=== PATIENT | male | born 1955 | race Caucasian/White ===

== ENCOUNTER → 2025-05-16 07:57 | Outpatient (CLI) | payer MEDICARE, OTHER, SELFPAY ==
--- NOTE | 2025-05-16 08:03 | DI.ECHO.S_ITS ---
[facility] : : [address] : : [place] : : [id number] : : Phone: [phone] Echocardiogram Report + + :Name: BREN CHAVEZ Study Date: 05/16/2025 Height: 74 in : :[facility] ReadingLocation: Weight: 184 lb : : Gender: Male BSA: 2.1 m2 : :: 1955 Age: 69 yrs BP: 153/85 mmHg: :Reason For Study: PAROXYSMAL ATRIAL FIBRILLATION : :Ordering Physician: SARITHA, : :JOSE Brown Performed By: Bal Witt : :Referring: JOSE MELARA : + + Interpretation Summary 1) Normal left ventricular size with low normal systolic function (EF 50-55%). 2) Normal right ventricular size and function. 3) There is mild aortic regurgitation. 4) There is mild mitral regurgitation. 5) Compared to the Echo done 07/26/2010, LVEF has decreased slightly based on visual assesment and mild valvular regurgitations are noted as above on this study. Procedure: A two-dimensional transthoracic echocardiogram with color flow and Doppler was performed. The study quality was technically good. Comparison is made with the echocardiogram of 07/26/2010. The patient was in normal sinus rhythm during the exam. Left Ventricle: The left ventricle is normal in size. Left ventricular wall thickness is at the upper limits of normal. A false chord is noted (normal variant). There is no ventricular septal defect visualized. The ejection fraction is estimated to be 50-55%. There are no focal wall motion abnormalities. Diastolic parameters suggest probable normal left ventricular diastolic function and normal filling pressures. Right Ventricle: The right ventricle is normal in size and function. Atria: The left atrial size is normal. Right atrial size is normal. There is no Doppler evidence for an interatrial shunt. Mitral Valve: The mitral valve leaflets appear mildly thickened. There is mild mitral regurgitation. Aortic Valve: The aortic valve is trileaflet. The aortic valve opens well. There is no aortic valve stenosis. There is mild aortic regurgitation. There is an eccentric jet of aortic insufficiency directed against the septum. Tricuspid Valve: The tricuspid valve leaflets are thin and pliable. No tricuspid regurgitation. Pulmonic Valve: The pulmonic valve is not well seen, but is grossly normal. There is trace pulmonic regurgitation. Great Vessels: The aortic root is moderately dilated. The dimensions of the ascending aorta are normal. The pulmonary is not well visualized. The inferior vena cava was not visualized. Pericardium/ Pleura There is no pericardial effusion. There is no pleural effusion. MMode/2D Measurements & Calculations LVIDd: 5.1 cm LVOT diam: 2.3 cm LVIDs: 3.7 cm Ao root diam: 4.6 cm FS: 28.2 % asc Aorta Diam: 3.5 cm EPSS: 1.0 cm IVSd: 1.2 cm LVPWd: 0.97 cm LV evans. diameter/BSA (cm/m^2): 2.4 LV sys. diameter/BSA (cm/m^2): 1.8 LA A2 area: 19.9 cm2 RA long axis: 4.8 cm LA A4 area: 20.4 cm2 RA area: 15.7 cm2 LA length (vol): 5.1 cm RA vol: 43.3 ml LA vol: 67.5 ml RA : 20.6 ml/m2 LA vol index: 32.2 ml/m2 RVD1 (basal): 3.5 cm RVD2 (mid): 2.9 cm TAPSE: 2.3 cm Doppler Measurements & Calculations Ao V2 max: 123.8 cm/sec LVOT Max Jose: 87.3 cm/sec Ao V2 mean: 83.6 cm/sec LV V1 max P.1 mmHg Ao max P.1 mmHg LV V1 VTI: 20.1 cm Ao mean P.2 mmHg PREM(I,D): 3.3 cm2 Ao V2 VTI: 26.4 cm PREM(V,D): 3.1 cm2 sev ratio: 0.76 PREM indexed to BSA (cm^2/m^2): 1.6 MV E max jose: 51.3 cm/sec PA V2 max: 101.7 cm/sec MV A max jose: 47.8 cm/sec PA V2 mean: 70.7 cm/sec MV E/A: 1.1 PA mean P.2 mmHg Med Peak E' Jose: 4.9 cm/sec PA pr(Accel): 19.1 mmHg E/E' med: 10.6 Lat Peak E' Jose: 5.9 cm/sec E/E' lat: 8.6 E/e' average: 9.6 MV dec time: 0.22 sec SV(LVOT): 86.9 ml Reading Physician:03:14 PM
== END ==
PROVIDERS: Family Provider Family Medicine; PCP Family Medicine; Referring Provider Family Medicine; Visit Provider Family Medicine
DX: I48.0 Paroxysmal atrial fibrillation (principal); I08.0 Rheumatic disorders of both mitral and aortic valves; I77.89 Other specified disorders of arteries and arterioles
CPT/HCPCS: 93306

== ENCOUNTER 2025-06-27 03:21 | Emergency (ER) | payer MEDICARE, OTHER, SELFPAY ==
[2025-06-27] VITALS (14 sets, daily range): BP systolic 108–145; BP diastolic 66–98; PULSE 75–102; RESP 12–31; TEMP 36.8; O2SAT 94–98; BMI 23.6
--- NOTE | 2025-06-27 03:24 | DI.RAD.S_ITS ---
PROCEDURE: XR CHEST 1V INDICATIONS: Chest Pain TECHNIQUE: One view of the chest was acquired. COMPARISON: None. FINDINGS: Surgical changes and devices: None. Lungs and pleura: Lungs are clear. No pleural effusions or pneumothorax. Mediastinum: Mediastinal contours appear normal. Heart size is normal. Bones and chest wall: No suspicious bony lesions. Overlying soft tissues appear unremarkable. IMPRESSION: No acute cardiopulmonary abnormality is seen. Dictated by: Keo Enamorado M.D. on 06/27/2025 at 8:07 Approved by: Keo Enamorado M.D. on 06/27/2025 at 8:08
--- NOTE | 2025-06-27 03:24 | EKG_ITS ---
[facility] [address], [place] [address] Test Date: 2025-06-27 Pat Name: Paul Velazquez Department: [facility] Room: Gender: Male Drop Tester: [facility] [place] : 1955 Requested By: Order Number: [id number] Reading MD: Johnson Choi MD Measurements Intervals [place] Rate: 96 P: ND: QRS: 73 QRSD: 102 T: 83 QT: 314 QTc: 396 Interpretive Statements Atrial fibrillation Incomplete right bundle branch block Electronically Signed On 06-27-2025 6:42:34 PDT by Johnson Choi MD
--- NOTE | 2025-06-27 03:40 | ED_ITS ---
HPI - Arrhythmia/Palpitations General Chief Complaint: Arrhythmia/Palpitations Stated Complaint: Palpitations Time Seen by Provider: 06/27/25 03:25 Source: patient Mode of arrival: Ambulatory History of Present Illness HPI narrative: 70-year-old gentleman history of AFib on metoprolol flecainide and full aspirin presents with atrial fibrillation since yesterday unrelieved with taking metoprolol and flecainide which usually controls the atrial fibrillation but not tonight. He denies chest pain, back pain, diaphoresis, nausea, vomiting, shortness of breath, dyspnea on exertion, leg pain, leg swelling. Other than what is stated 14 point review of system is negative. Related Data Home Medications ?Medication ?Instructions ?Recorded ?Confirmed AMLODIPINE BESYLATE (NORVASC) 5 mg PO Q DAY ##0 ASPIRIN (Aspirin) 648 ##0 07/24/10 Previous Rx's ?Medication ?Instructions ?Recorded apixaban 5 mg (74 tabs) tablets in 5 mg PO BID #74 ea 06/27/25 a dose pack (Elephant.is DVT-PE Treat 30D Start) flecainide 100 mg tablet 50 mg (1/2 x 100 mg) PO Q12H #30 06/27/25 tabs Allergies Allergy/AdvReac Type Severity Reaction Status Date / Time No Known Drug Allergies Allergy Verified 06/27/25 03:33 Review of Systems Review of Systems ROS Unobtainable: All systems reviewed & are unremarkable except as noted in HPI and below Patient History Social History Smoking Status: Never smoker Smoking Status: Never smoker Exam Narrative Exam Narrative: GENERAL: [70] year old patient appears stated age. Well-developed patient, in mild distress. HEAD: Atraumatic. Normocephalic. EYES: Pupils equal round and reactive. Extraocular motions intact. No scleral icterus. No injection or drainage. ENT: Nose without bleeding, purulent drainage. Throat without erythema, tonsillar hypertrophy or exudate. Airway patent. NECK: Trachea midline. Non tender CARDIOVASCULAR: Irregularly irregular tachycardic without murmurs, gallops, or rubs. RESPIRATORY: Clear to auscultation. Breath sounds equal bilaterally. No wheezes, rales, or rhonchi. GASTROINTESTINAL: Abdomen soft, non-tender, nondistended. EXTREMITIES: No edema or joint tenderness. BACK: Nontender without deformity or crepitance. No flank tenderness. NEURO: AOx3. SKIN: No rash or erythema of visible areas Initial Vital Signs Initial Vital Signs: Vital Signs Temperature 98.2 F 06/27/25 03:33 Pulse Rate 102 H 06/27/25 03:33 Respiratory Rate 16 06/27/25 03:33 Blood Pressure 138/98 H 06/27/25 03:33 Pulse Oximetry 98 06/27/25 03:33 Oxygen Delivery Method Room Air 06/27/25 03:33 Scores HEART Score Heart Score history: Slightly Suspicious Heart Score EKG: Non-Specific repolarization disturbance Heart Score Age: > or = 65 years old Heart Score risk factors: 1-2 risk factors Heart Score troponin: < or = to normal limit Heart Score Total: 4 Course Orders Ordered: ED Orders 06/27/25 03:24 XR chest 1V Stat EKG-12 Lead Stat 06/27/25 03:37 Complete Blood Count AUTO DIFF Stat Comprehensive Metabolic Panel Stat Lipase Stat Magnesium Stat NT-proBNP (BNP-Adult 18+) Stat PTT Partial Thromboplastin Da Stat Prothrombin Time INR Stat TSH [Thyroid Stimulating Hormone] Stat Troponin & CK Cardiac Panel Stat 06/27/25 05:33 Trop I [Troponin I] Stat Discontinued Medications Aspirin (Aspirin 81 Mg Chew Tab) 324 mg PO NOW ONE Stop: 06/27/25 03:25 Last Admin: 06/27/25 03:44 Dose: 324 mg Documented By: LEONILA Metoprolol Tartrate (Metoprolol Tartrate 5 Mg/5 Ml Inj) 5 mg IV NOW ONE Stop: 06/27/25 03:47 Last Admin: 06/27/25 03:48 Dose: 5 mg Documented By: LEONILA Vital Signs Vital signs: Vital Signs - 8 hr 06/27/25 03:33 06/27/25 03:57 06/27/25 04:00 Temperature 98.2 F Pulse Rate 102 H 83 80 Respiratory Rate 16 18 16 Blood Pressure 138/98 H Pulse Oximetry 98 98 98 Oxygen Delivery Method Room Air 06/27/25 04:00 06/27/25 04:16 06/27/25 04:16 Temperature Pulse Rate 89 Respiratory Rate 14 Blood Pressure 112/77 117/71 Pulse Oximetry 96 Oxygen Delivery Method 06/27/25 04:30 06/27/25 04:30 06/27/25 04:45 Temperature Pulse Rate 90 Respiratory Rate 24 Blood Pressure 128/81 122/70 Pulse Oximetry 95 Oxygen Delivery Method 06/27/25 04:45 06/27/25 05:00 06/27/25 05:00 Temperature Pulse Rate 87 84 Respiratory Rate 15 13 Blood Pressure 125/76 Pulse Oximetry 98 97 Oxygen Delivery Method 06/27/25 05:15 06/27/25 05:15 06/27/25 05:30 Temperature Pulse Rate 90 94 H Respiratory Rate 12 23 Blood Pressure 126/81 Pulse Oximetry 94 94 Oxygen Delivery Method 06/27/25 05:30 Temperature Pulse Rate Respiratory Rate Blood Pressure 111/75 Pulse Oximetry Oxygen Delivery Method MDM - Arrhythmia/Palpitations Lab Data 06/27/25 03:37 06/27/25 03:37 Labs: Lab Results 06/27/25 06/27/25 Range/Units 03:37 05:33 WBC 7.7 (4.5-11.0) X10^3/uL RBC 5.77 (4.5-5.9) X10^6/uL Hgb 16.7 (13.5-17.5) g/dL Hct 47.8 (41-53) % MCV 82.8 (80-100) fL MCH 28.9 (26-34) PG MCHC 34.9 (30-36) % RDW 14.6 (11.6-14.8) % Plt Count 242 (150-400) X10^3/uL Neut % (Auto) 55.0 (50-75) % Lymph % (Auto) 24.6 L (25-40) % [place] % (Auto) 10.7 (3-14) % Eos % (Auto) 8.9 H (2-4) % Baso % (Auto) 0.8 (0-2) % Neut # (Auto) 4200 (0367-0882) /uL Lymph # (Auto) 1900 (0399-3280) /uL [place] # (Auto) 800 (0-900) /uL Eos # (Auto) 700 H (0-450) /uL Baso # (Auto) 100 (0-100) /uL PT 10.7 (9.4-12.5) SECONDS INR 0.9 (0.9-1.3) APTT 34 (25.1-36.5) SECONDS Sodium 141 (137-145) mmol/L Potassium 4.0 (3.4-5.1) mmol/L Chloride 107 (98-107) mmol/L Carbon Dioxide 25 (22-32) mmol/L BUN 18 (9-20) mg/dL Creatinine 0.94 (0.66-1.25) mg/dL Estimated GFR > 60 (>60) mL/min BUN/Creatinine Ratio 19.1 (6-22) Glucose 101 H (70-99) mg/dL Calcium 9.2 (8.4-10.2) mg/dL Magnesium 2.2 (1.6-2.3) mg/dL Total Bilirubin 0.8 (0.2-1.3) mg/dL AST 42 (17-59) IU/L ALT 34 (<50) IU/L Alkaline Phosphatase 103 (38-126) U/L Total Creatine Kinase 230 H (55-170) U/L Troponin I 0.038 H 0.035 H (0.01-0.034) ng/mL NT-Pro-B Natriuret Pep 1590 H (<125) pg/mL Total Protein 7.9 (6.3-8.2) g/dL Albumin 4.7 (3.5-5.0) g/dL Globulin 3.2 (1.7-4.1) g/dL Albumin/Globulin Ratio 1.5 (1.0-2.8) Lipase 74 (23-300) U/L TSH 4.97 H (0.47-4.68) uIU/mL Imaging Data Chest x-ray: Radiologist's Impresson: No acute cardiopulmonary abnormality identified ECG Data Interpretation: Afib HR 96 MO undetermined QRS [address]-t wave change No previous EKG to compare MDM Narrative Medical decision making narrative: All lab work, vital signs, nurse triage note, medication list, previous ER visits, and all imaging studies reviewed. Chest x-ray showed no acute process. Heart score 4. Trop 1st set 0.038 and 2nd set 0.035. Patient given Lopressor 5 mg IV x1, flecanide 100mg, eliquis 5mg Po x1. D/c home on flecanide 100mg po bid, eliquis rx, hold asa, continue metoprolol 50mg once daily. Case was discussed with Dr.Bhola jamaal SHEPARD director workers compensation. Differential diagnosis STEMI, NSTEMI, AFib, aflutter, CHF, pneumonia. Pt will f/u with his cards as o/p . Discharge Plan Departure Patient Disposition: Home Clinical Impression: Atrial fibrillation Qualifiers: Atrial fibrillation type: unspecified chronic Qualified Code(s): I48.20 - Chronic atrial fibrillation, unspecified Instructions: DI for Atrial Fibrillation Activity Restrictions/Additional Instructions: Return with new or worsening symptoms. Take your medicines as directed. Stop aspirin start eliquis twice daily and flecainide 100mg twice daily, continue metoprolol 50mg daily. Follow up with mechanical service technician call office for appointment [phone]. Prescriptions: New Eliquis DVT-PE Treat 30D Start 5 mg (74 tabs) tablets,dose pack 5 mg PO BID Qty: 74 0RF flecainide 100 mg tablet 50 mg PO Q12H Qty: 30 0RF No Action AMLODIPINE BESYLATE (NORVASC) 5 mg PO Q DAY Qty: 0 ASPIRIN (Aspirin) 648 Qty: 0 Referrals: Pavel Person MD [Primary Care Provider, Family Practice] Zia Villasenor MD [Physician, Cardiology] Stand Alone Forms: Patient Portal/API
[2025-06-27] MEDS: ASPIRIN 81 MG CHEW TAB 324 MG PO (03:44)
[2025-06-27] MEDS: METOPROLOL TARTRATE 5 MG/5 ML INJ IV (03:48)
[2025-06-27 03:50] LABS: Add Manual Diff / Slide Review NO; Hematocrit 47.8 % (41-53); Hemoglobin 16.7 g/dL (13.5-17.5); Lymphocytes Absolute Auto 1900 /uL (1100-4500); Mean Corpuscular HGB Conc 34.9 % (30-36); Mean Corpuscular Hemoglobin 28.9 PG (26-34); Mean Corpuscular Volume 82.8 fL (80-100); Platelet Count 242 X10^3/uL (150-400)
[2025-06-27 03:51] LABS: INR 0.9 (0.9-1.3); Prothrombin Time 10.7 SECONDS (9.4-12.5)
[2025-06-27 03:54] LABS: Alanine Aminotransferase 34 IU/L (<50); Albumin 4.7 g/dL (3.5-5.0); Albumin Globulin Ratio 1.5 (1.0-2.8); Alkaline Phosphatase 103 U/L (38-126); Blood Urea Nitrogen 18 mg/dL (9-20); Calcium 9.2 mg/dL (8.4-10.2); Carbon Dioxide 25 mmol/L (22-32); Chloride 107 mmol/L (98-107); Creatine Kinase 230 U/L (55-170); Estimated Glomerular Filt Rate > 60 mL/min (>60); Globulin 3.2 g/dL (1.7-4.1); Glucose 101 mg/dL (70-99); HEMOLYSIS < 15 (0-50); Lipase 74 U/L (23-300); Magnesium 2.2 mg/dL (1.6-2.3); PTT Partial Thromboplastin Tim 34 SECONDS (25.1-36.5); Potassium 4.0 mmol/L (3.4-5.1); Sodium 141 mmol/L (137-145); Total Protein 7.9 g/dL (6.3-8.2)
[2025-06-27 04:06] LABS: NT-proBNP (BNP-Adult 18+) 1590 pg/mL (<125); Troponin I 0.038 ng/mL (0.01-0.034)
[2025-06-27 04:49] LABS: Thyroid Stimulating Hormone 4.97 uIU/mL (0.47-4.68)
[2025-06-27 06:06] LABS: Troponin I 0.035 ng/mL (0.01-0.034)
[2025-06-27] MEDS: APIXABAN 5 MG TABLET PO (06:24)
[2025-06-27] MEDS: FLECAINIDE 100 MG TABLET PO (06:24)
== END 2025-06-27 06:40 | disposition home or self-care (01) ==
PROVIDERS: Emergency Provider Family Medicine; Family Provider Family Medicine; PCP Family Medicine
DX: I48.20 Chronic atrial fibrillation, unspecified (principal); Z79.82 Long term (current) use of aspirin
CPT/HCPCS: 36415; 71045; 80053; 82550; 83690; 83735; 83880; 84443; 84484; 85025; 85610; 85730; 93005; 93010; 96374; 99284

== ENCOUNTER → 2025-07-21 08:55 | Outpatient (CLI) | payer MEDICARE, OTHER, SELFPAY ==
--- NOTE | 2025-07-21 08:57 | DI.NM.S_ITS ---
PROCEDURE: NM EXERCISE TREADMILL NON NUC COMPARISON: None. INDICATIONS: AFIB FINDINGS: Patient exercised per the standard Vincent protocol. Total exercise time was 10 minutes and 0 seconds. Test was terminated secondary to fatigue. Maximal heart rate attained is 100 bpm which is 66% of maximum predicted heart rate. Maximum blood pressure was 160/[place] [id number]. PATSY -36%. 12.8 METS. No ischemic changes. Occasional PVCs noted during the stress phase. No ventricular dysrhythmias noted. No chest pains voiced. Blunted heart rate with normal blood pressure response to exercise. IMPRESSION: 1. Nondiagnostic exercise treadmill stress test for ischemia due to inability to reach target heart rate. 2. Blunted heart rate response to exercise due to the patient taking his metoprolol in the morning of the stress test. 3. Very good exercise tolerance. Dictated by: Ramiro Villagran M.D. on 07/21/2025 at 17:12 Approved by: Ramiro Villagran M.D. on 07/21/2025 at 17:14
== END ==
LOC: NUCM 08:56
PROVIDERS: Family Provider Family Medicine; PCP Family Medicine; Referring Provider Family Medicine; Visit Provider Internal Medicine Cardiovascular Disease
DX: I48.0 Paroxysmal atrial fibrillation (principal); Z79.899 Other long term (current) drug therapy
CPT/HCPCS: 93017